=== PATIENT | female | born 1960 | race Two or more races ===

== ENCOUNTER → 2017-12-19 | Outpatient (CLI) | payer OTHER ==
[~2017-12-19] MED LIST: LEVO-T50 MCG; PRISTIQ25 MG; PROGESTERONE100 MG; PROPRANOLOL HCL10 MG; WELLBUTRIN SR150 MG
== END | disposition home or self-care (01) ==
LOC: SONOGRAMA 08:23
DX: E03.8 Other specified hypothyroidism (principal)

== ENCOUNTER 2017-12-23 09:13 | Emergency (ER) | payer OTHER ==
[~2017-12-23] VITALS: Ht 162.6 cm; Wt 57.2 kg
[2017-12-23] MEDS ORDERED: WELLBUTRIN SR150 MG (09:26)
[2017-12-23] MEDS ORDERED: PROPRANOLOL HCL10 MG (09:26)
[2017-12-23] MEDS ORDERED: PRISTIQ25 MG (09:26)
[2017-12-23] MEDS ORDERED: PROGESTERONE100 MG (09:27)
[2017-12-23] MEDS ORDERED: LEVO-T50 MCG (09:27)
== END 2017-12-23 14:42 | disposition home or self-care (01) ==
LOC: ER 09:13
DX: R00.2 Palpitations (principal)